=== PATIENT | female | born 1975 | race Caucasian/White ===

== ENCOUNTER → 2017-08-21 01:10 | Emergency (ER) | payer OTHER ==
[2016-06-17 11:49] VITALS: BP 140/80
== END | disposition left against medical advice (07) ==
LOC: ED 01:10
DX: Z53.21 Procedure and treatment not carried out due to patient leaving prior to being seen by health care provider (principal)
CPT/HCPCS: 99281

== ENCOUNTER 2017-11-04 05:48 | Emergency (ER) | payer OTHER ==
[2017-11-04 06:02] VITALS: BP 105/71
--- NOTE | 2017-11-04 06:07 | ED Physician Documentation ---
General Adult - HISTORIAN Historian: patient - HPI Stated Complaint: N/V epigastric pain Chief Complaint: General Adult Onset: hours (2) Timing: still present Severity: moderate Further Comments: yes (Pt is a 42 yo female [employer] employee who developed n/v/ diarrhea after coming to work this evening. In the past 2 hrs pt has vomited 15 times, she says, and has had massive diarrhea.) - ROS CONST: weakness EYES/ENT: none CVS/RESP: none GI/: abdominal pain, vomiting, nausea, diarrhea MS/SKIN/LYMPH: none - PAST HX Past History: other (hysterectomy) Allergies/Adverse Reactions: Allergies Allergy/AdvReac Type Severity Reaction Status Date / Time No Known Allergies Allergy Verified 11/04/17 05:58 Home Medications: Ambulatory Orders Medication Instructions Recorded Ciprofloxacin HCl [Cipro] 500 mg PO BID #14 tablet 11/04/17 Ondansetron HCl Rapdis [Zofran Odt] 4 mg PO Q8 #8 tab 11/04/17 - SOCIAL HX Smoking History: quit greater than 1 year - FAMILY HX Family History: No - VITAL SIGNS Vital Signs: Vital Signs Temp Pulse Resp BP Pulse Ox 98.6 F 110 H 16 105/71 97 11/04/17 05:50 11/04/17 05:50 11/04/17 05:50 11/04/17 05:50 11/04/17 05:50 - REVIEWED ASSESSMENTS Nursing Assessment Reviewed: Yes Vitals Reviewed: Yes Progress - Progress Progress: Influenza A & B - neg LR 1 L IVF Zofran 4 mg IV Ciprofloxacin 400 mg IV Rx Zofran ODT 4 mg. sig 1 po q 8 hrs prn #10 Rx Cipro 500 mg po bid x 7 days. General Adult Physical Exam - PHYSICAL EXAM GENERAL APPEARANCE: moderate distress EENT: pharynx normal NECK: normal inspection, supple RESPIRATORY: no resp distress, chest non-tender, breath sounds normal CVS: reg rate & rhythm, heart sounds normal ABDOMEN: soft, normal bowel sounds, tenderness (mild-moderated diffuse abd tenderness) BACK: normal inspection, no CVA tenderness SKIN: warm/dry, normal color EXTREMITIES: non-tender, normal range of motion, no evidence of injury, no edema NEURO: oriented X3, motor nml, sensation nml Discharge Clincal Impression: nausea, vomiting, diarrhea Prescriptions: Ciprofloxacin HCl [Cipro] 500 mg PO BID #14 tablet Ondansetron HCl Rapdis [Zofran Odt] 4 mg PO Q8 #8 tab Referrals: Bryon Hopkins DO [Primary Care Provider] - Condition: Stable Disposition: 01 HOME, SELF-CARE Decision to Admit: NO Decision Time: 07:30
[2017-11-04] MEDS: LACTATED RINGERS 1,000 ML IV ONE (06:15)
[2017-11-04] MEDS: ONDANSETRON HCL/PF 4 MG/ 2ML VIAL IVP ONE ×2 (06:16→07:53)
[2017-11-04 06:43] LABS: MEAN CORPUSCULAR HEMOGLOBIN 32.1 pg (28.0-34.0); MEAN CORPUSCULAR VOLUME 90.3 fl (80.0-100.0)
[2017-11-04 06:47] LABS: eGFR (African) > 60; eGFR (Non-African) > 60
[2017-11-04] MEDS: CIPROFLOXACIN/D5W 400 MG in PREMIX BAG 1 BAG IV ONE (06:59)
[2017-11-04] MEDS: 0.9 % SODIUM CHLORIDE 1,000 ML IV ONE ×2 (07:02→08:09)
[2017-11-04] MEDS: CIPROFLOXACIN/D5W 200 ML IV ONE (07:02)
[2017-11-04 07:18] LABS: BASOPHILS % 1 % (0-2); MONOCYTES % 4 % (0-11); SEGMENTED NEUTROPHILS % 89 % (39-79)
[2017-11-04] MEDS ORDERED: PROMETHAZINE HCL 25 MG TABLET PO ONE (07:43)
[2017-11-04] MEDS: KETOROLAC TROMETHAMINE 30 MG/1ML VIAL IVP ONE (08:12)
== END 2017-11-04 09:41 | disposition home or self-care (01) ==
LOC: ED 05:48
DX: R11.2 Nausea with vomiting, unspecified (principal); R19.7 Diarrhea, unspecified
CPT/HCPCS: 80053; 85025; 87400; J0744; J1885; J2405; J7030; J7120; 96361; 96365; 96375; 99283; S1016

== ENCOUNTER 2018-04-22 08:03 | Emergency (ER) | payer SELFPAY ==
[2018-04-22 08:13] VITALS: BP 134/83
--- NOTE | 2018-04-22 08:57 | ED Physician Documentation ---
General Adult - HPI Stated Complaint: L wrist pain Chief Complaint: General Adult Onset: hours Timing: still present Severity: moderate Further Comments: yes (Pt is a 43 yo female with a L wrist injury. Pt was startled when she went to lift a garbage can lid and a racoon jumped out at her. Pt fell onto her L wrist. Pt has L wrist pain.) - ROS CONST: no problems EYES/ENT: none CVS/RESP: none GI/: none MS/SKIN/LYMPH: other (L wrist injury) - PAST HX Past History: other (c-sec, Hysterectomy) Allergies/Adverse Reactions: Allergies Allergy/AdvReac Type Severity Reaction Status Date / Time No Known Allergies Allergy Verified 04/22/18 08:13 Home Medications: Ambulatory Orders Medication Instructions Recorded NK [NK] 04/22/18 - SOCIAL HX Smoking History: non-smoker - FAMILY HX Family History: No - VITAL SIGNS Vital Signs: Vital Signs Temp Pulse Resp BP Pulse Ox 97.3 F L 95 H 17 134/83 96 04/22/18 08:10 04/22/18 08:10 04/22/18 08:10 04/22/18 08:10 04/22/18 08:10 - REVIEWED ASSESSMENTS Nursing Assessment Reviewed: Yes Vitals Reviewed: Yes Progress - Progress Progress: X-ray L wrist: 3 views the left wrist demonstrates osteopenia. Articular degenerative changes. Region of increased sclerosis involving the distal radius. Remaining cortical margins without gross abnormality. No dislocation. No soft tissue abnormality. Impression: Osteopenia and degenerative changes. Region of increased sclerosis distal radius suggesting impaction fracture/injury. wrist splint f/u ortho pt declined pain medicine. ED Results Lab/Radiology - Orders Orders: ED Orders Category Date Time Status WRIST 3 VIEWS OR MORE [RAD] Stat Exams 04/22/18 Ordered General Adult Physical Exam - PHYSICAL EXAM GENERAL APPEARANCE: mild distress NECK: normal inspection, supple RESPIRATORY: no resp distress, chest non-tender, breath sounds normal CVS: reg rate & rhythm, heart sounds normal SKIN: warm/dry, normal color EXTREMITIES: other (L wrist tenderness, minimal swelling, no deformity) NEURO: oriented X3, motor nml, sensation nml Discharge Clincal Impression: Left wrist fracture Qualifiers: Encounter type: initial encounter Fracture type: closed Qualified Code(s): S62.102A - Fracture of unspecified carpal bone, left wrist, initial encounter for closed fracture Referrals: Bryon Hopkins DO [Primary Care Provider] - Condition: Good Disposition: 01 HOME, SELF-CARE Decision to Admit: NO Decision Time: 09:00
--- NOTE | 2018-04-22 18:28 | Diagnostic Imaging Report ---
JONO DANG [facility] [id number] [facility] [address] [id number] Report Submission Date: Apr 22, 2018 8:40:09 AM CDT Patient Study Name: NANETTE HI Date: Apr 22, 2018 8:17:47 AM CDT Modality Type: DX Gender: F Description: UPPER EXTREMITY : 77 Institution: [facility] Physician: JONO DANG Examination: Plain film left wrist History: LEFT WRIST, PAIN IN MID WRIST AFTER FALL EARLY THIS MORNING (Hx) Comparison exams: None available Findings: 3 views the left wrist demonstrates osteopenia. Articular degenerative changes. Region of increased sclerosis involving the distal radius. Remaining cortical margins without gross abnormality. No dislocation. No soft tissue abnormality. Impression: Osteopenia and degenerative changes. Region of increased sclerosis distal radius suggesting impaction fracture/injury. Electronically signed on Apr 22, 2018 8:40:09 AM CDT by: Anibal ECKERT
== END 2018-04-22 09:12 | disposition home or self-care (01) ==
LOC: ED 08:03
DX: S62.102A Fracture of unspecified carpal bone, left wrist, initial encounter for closed fracture (principal); W19.XXXA Unspecified fall, initial encounter; Y92.9 Unspecified place or not applicable; Y93.9 Activity, unspecified; Y99.9 Unspecified external cause status
CPT/HCPCS: 73110; 99283